=== PATIENT | male | born 1970 | race Caucasian/White ===

== ENCOUNTER 2017-10-02 11:57 | Emergency (ER) | payer MEDICARE, SELFPAY ==
[2017-10-02 11:58] VITALS: BP 114/82; PULSE 112; RESP 16; TEMP 36.6; O2SAT 99; BMI 16.9
--- NOTE | 2017-10-02 12:06 | RAD_ITS ---
STUDY: X-RAY - LUMBAR SPINE REASON FOR EXAM: Male, 47 years old. Injury for 2 to 3 years TECHNIQUE: 3 view(s) of the lumbar spine were obtained. COMPARISON: None FINDINGS: L2 vertebral body as well as T12 vertebral body compression fractures of indeterminate age noted. Multilevel facet arthrosis. There is likely fracture deformities in the spinous processes present in the lower lumbar spine. IMPRESSION: T12 and L2 vertebral body compression fractures of indeterminate age. Fracture deformities in the lower lumbar spine also seen please consider CT examination for better assessment Electronically Signed: Dago Hammer, at 13:14 EDT Tel , Service support , RAD/Lumbar Spine 2 or 3 Views
[2017-10-02] MEDS: HYDROcodone Bitartrate/Apap 5/325 Tablet PO (12:09)
--- NOTE | 2017-10-02 12:10 | ED.DCSUM_ITS ---
- ER Visit Summary Date of Service: 10/02/17 Chief Complaint: Back pain History of Present Illness: The patient is a 47 M ends to the emergency department back pain. Patient has a history of compression fracture that was diagnosed about 5 months ago. He states that his pain was well controlled and he was taking Motrin. Over the past 2 weeks, his pain is worsened. He thinks it is because he has been doing more. He states his been walking a lot and doing more work around his house. He said a dull ache in his low back that seems to get worse throughout the day. It does not radiate down his legs. He has had no problems of bowel or bladder. He denies any trauma. He denies any fevers, chills, night sweats, or other systemic symptoms. Physical Examination: Afebrile, vitals unremarkable. Well-appearing male no acute distress. Head is normocephalic, atraumatic. Pupil's equal round reactive, extraocular muscles intact. Neck supple. Heart regular rate and rhythm. Lungs clear, chest nontender. Abdomen soft, nontender, nondistended. No pulsatile mass. Patient has paraspinal tenderness in the lumbar area, but no bony tenderness. Straight leg raise is negative bilaterally. 2+ symmetric lower extremity pulses. 2+ reflexes. No clonus. No weakness of dorsiflexion, plantar flexion, or extensor hallucis longus bilaterally. Test Results: [] Emergency Department Course and Treatment: With the patient's history of prior lumbar compression fracture, I did obtain plain films. There is no evidence of new injury. The patient has a benign examination. He has no red-like symptoms. He is treated with 1 dose of analgesics. He will be kept on anti- inflammatories and antispasmodics at home. I did counselor aide him he may need outpatient physical therapy if he continues to have symptoms. He will be discharged. Treatment Plan: [] Disposition: Discharge Impression: 1. Lumbar strain with history of compression fracture This note was generated with [employer] dictation software. It may contain incorrect words, spelling, and punctuation that were not noted in review of the chart prior to signing ED Disposition - Plan for ED Patient: Chief Complaint: Back Instructions: ED Sprain Strain Lumbar Prescriptions: Ibuprofen [Motrin] 800 mg PO TID PRN PRN #20 tab PRN Reason: Pain Cyclobenzaprine [Flexeril] 10 mg PO TID PRN #20 tab PRN Reason: Muscle Spasm Referrals: Care Physician,No Primary [Primary Care Provider] -
[2017-10-02 12:53] VITALS: BP 110/71; PULSE 78; RESP 18
== END 2017-10-02 12:54 | disposition home or self-care (01) ==
PROVIDERS: Emergency Provider Emergency Medicine
DX: S39.012A Strain of muscle, fascia and tendon of lower back, initial encounter (principal); M54.5 Low back pain; G89.29 Other chronic pain; Z72.0 Tobacco use; X58.XXXA Exposure to other specified factors, initial encounter; Y93.01 Activity, walking, marching and hiking; Y92.009 Unspecified place in unspecified non-institutional (private) residence as the place of occurrence of the external cause; Y99.8 Other external cause status
CPT/HCPCS: 72100; 99283